=== PATIENT | male | born 1995 | race Asian ===

== ENCOUNTER 2019-05-28 03:09 | Emergency (ER) | payer OTHER ==
[~2019-05-28] VITALS: Ht 165.1 cm; Wt 63.5 kg
--- NOTE | 2019-05-28 03:16 | NUR ---
PT [id number] C/C HALLUCINATIONS X3HRS, PT DID NOT TAKE HIS MEDS. -SI, -HI. PT STATES HALLUCINATIONS HAVE SUBSIDED. PT AOX4. NAD NOTED. RESP EVEN AND UNLABORED. PT DENIES PAIN AT THIS TIME. PT ON MONITOR IN BED 12. WILL CONTINUE TO MONITOR.
[2019-05-28] MEDS ORDERED: OLANZAPINE 5 MG TABLET PO ONE (03:30)
[2019-05-28] MEDS ORDERED: OLANZAPINE 5 MG TABLET ONE (03:33)
--- NOTE | 2019-05-28 04:27 | NUR ---
pt in bed . awake and responsive. no distress. no behavioral issues. will cont to monitor
--- NOTE | 2019-05-28 05:41 | NUR ---
pt is to be d/c'd .Written and verbal after care instructions given. Patient verbalizes understanding of instruction. pt is willing to go back to the [facility]. facility was called for transporation
--- NOTE | 2019-05-28 05:41 | NUR ---
SPOKE WITH BENNETT FROM [facility] AND INFORMED PT IS MEDICALLY CLEARED FOR DISCHARGE. THEY WILL SET UP TRANSPORTATION FOR PT TO RETURN TO FACILITY.
--- NOTE | 2019-05-28 06:20 | NUR ---
. Patient discharged to the [facility] in stable condition. Written and verbal after care instructions given. Patient verbalizes understanding of instruction. transportation provided by the facility
[2019-05-28 06:25] VITALS: BP 116/75
== END 2019-05-28 06:26 | disposition home or self-care (01) ==
LOC: ER 03:15
DX: F28 Other psychotic disorder not due to a substance or known physiological condition (principal)